=== PATIENT | female | born 1980 | race Caucasian/White ===

== ENCOUNTER 2018-07-14 08:00 | Outpatient (CLI) | payer MEDICAID | END 2018-07-14 08:01 | disposition home or self-care (01) | LOC: LAB.R 08:00 | PROVIDERS: ATTEND Nurse Practitioner Obstetrics & Gynecology | DX: R30.0 Dysuria (principal) | CPT/HCPCS: 87086 ==

== ENCOUNTER 2018-12-13 13:03 | Emergency (ER) | payer MEDICAID ==
[2018-12-13 13:41] LABS: BASOPHILS % (AUTO) 0.3 %; EOSINOPHILS # (AUTO) 0.1 10^3/uL (0.0-0.7); EOSINOPHILS % (AUTO) 1.7 %; HGB - HEMOGLOBIN 14.6 g/dL (12.0-16.0); LYMPHOCYTES # (AUTO) 1.9 10^3/uL (1.5-3.5); LYMPHOCYTES % (AUTO) 29.6 %; MEAN CORPUSCULAR HEMOGLOBIN 28.5 pg (27.0-31.0); MEAN CORPUSCULAR HGB CONC 33.5 g/dL (32.0-36.0); MEAN CORPUSCULAR VOLUME 85.2 fL (81.0-99.0); MEAN PLATELET VOLUME 10.3 fL (7.9-10.8); MONOCYTES # (AUTO) 0.4 10^3/uL (0.0-1.0); MONOCYTES % (AUTO) 5.6 %; NEUTROPHILS # (AUTO) 4.1 10^3/uL (1.5-6.6); NEUTROPHILS % (AUTO) 62.3 %; PLT - PLATELET COUNT 232 10^3/uL (130-450); RED BLOOD COUNT 5.12 10^6/uL (4.20-5.40); RED CELL DISTRIBUTION WIDTH 12.8 % (12.0-15.0); WHITE BLOOD COUNT 6.6 x10^3/uL (4.8-10.8)
[2018-12-13 13:54] LABS: ALBUMIN 4.3 g/dL (3.2-5.5); ALBUMIN/GLOBULIN RATIO 1.2 (1.0-2.2); BILIRUBIN,TOTAL 0.4 mg/dL (0.2-1.0); CALCIUM 9.1 mg/dL (8.5-10.3); CREATININE 0.7 mg/dL (0.4-1.0)
--- NOTE | 2018-12-13 14:32 | XRAY Report ---
Reason: chest pain Procedure Date: 12/13/2018 Accession Number: [id number] / [id number] Procedure: XR - Chest 2 View X-Ray CPT Code: 93185 FULL RESULT: EXAM: CHEST RADIOGRAPHY EXAM DATE: 12/13/2018 02:01 PM. CLINICAL HISTORY: Chest pain. COMPARISON: None. TECHNIQUE: 2 views. FINDINGS: Lungs/Pleura: No focal opacities or vascular congestion. No pleural effusion or pneumothorax. Normal volumes. Mediastinum: Heart and mediastinal contours are unremarkable. Other: Bones unremarkable. IMPRESSION: 1. Unremarkable 2-view chest radiography. [facility]
--- NOTE | 2018-12-13 15:00 | ED Physician Documentation ---
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 Having just mild pain still.) Timing - duration: Minutes Timing - details: Abrupt onset, Still present (lessened) Quality: Aching, Sharp, Pain Location: Substernal, Left chest, Left neck Radiation: Neck Improved by: No: Rest Worsened by: Inspiration, Movement, Palpation. No: Exertion Associated symptoms: No: Shortness of air, Nausea, Vomiting, Feeling faint / dizzy, Palpitations, Cough Similar symptoms before: No diagnosis (similar episode recent past that lasted few hours to a day.) Review of Systems Constitutional: denies: Fever, Chills Nose: denies: Rhinorrhea / runny nose, Congestion Throat: denies: Sore throat Respiratory: denies: Cough GI: denies: Abdominal Pain, Nausea, Vomiting Neurologic: reports: Numbness (has some feeling of numbness down left arm to middle fingers, not whole arm/hand.). denies: Focal weakness Psychiatric: denies: Depressed, Anxiety PD PAST MEDICAL HISTORY - Past Medical History Past Medical History: Yes Cardiovascular: Angina Respiratory: Asthma Neuro: None Endocrine/Autoimmune: None GI: None WATER PLUMBER: Other : Chronic bladder infection HEENT: None Musculoskeletal: Other Derm: None Other Past Medical History: ggnew substernal pain in the last 5 months: 12/13/2018. cervical cancer, restless lef - Present Medications Home Medications: Ambulatory Orders Medication Instructions Recorded Confirmed Naproxen 375 mg PO BID #20 tablet 12/13/18 Tramadol HCl 50 mg PO Q6H PRN #15 tablet 12/13/18 - Allergies Allergies/Adverse Reactions: Allergies Allergy/AdvReac Type Severity Reaction Status Date / Time No Known Drug Allergies Allergy Verified 12/13/18 13:14 - Social History Does the pt smoke?: No Smoking Status: Never smoker PD ED PE NORMAL - Vitals Vital signs reviewed: Yes - General General: Alert and oriented X 3, Well developed/nourished - HEENT HEENT: Pharynx benign - Neck Neck: Supple, no meningeal sign, No adenopathy, Other (left lateral neck at SCM with some tenderness. Not tender posteriorly. ) - Cardiac Cardiac: RRR, No murmur - Respiratory Respiratory: Clear bilaterally, Other (focal chest tenderness left parasternal upper aspect without redness, rash, nor sores. ) - Abdomen Abdomen: Soft, Non tender - Derm Derm: Normal color, Warm and dry, No rash - Extremities Extremities: Other (good color, pulses, cap refill and motor in left arm. Sensation present to touch in area of subjective numbness. ) - Neuro Neuro: Alert and oriented X 3, No motor deficit, No sensory deficit, Normal speech - Psych Psych: Normal mood, Normal affect Results - Vitals Vitals: Vital Signs - 24 hr 12/13/18 12/13/18 12/13/18 13:11 14:55 15:02 Temperature 37.1 C Heart Rate 90 86 Respiratory 18 13 Rate Blood Pressure 114/84 H Blood Pressure 116/76 [Left] Blood Pressure 115/96 H [Right] O2 Saturation 104 H 100 12/13/18 16:46 Temperature Heart Rate 88 Respiratory 19 Rate Blood Pressure 109/77 Blood Pressure [Left] Blood Pressure [Right] O2 Saturation 98 Oxygen O2 Source Room air - EKG (time done) 13:09 Rate: Rate (enter#) (90) Rhythm: NSR [place]: Normal Intervals: Normal VT QRS: Normal Ischemia: Normal ST segments. No: ST elevation c/w ischemia, ST depression - Labs Labs: Laboratory Tests 12/13/18 12/13/18 12/13/18 13:35 13:35 13:35 WBC 6.6 RBC 5.12 Hgb 14.6 Hct 43.6 MCV 85.2 MCH 28.5 MCHC 33.5 RDW 12.8 Plt Count 232 MPV 10.3 Neut # (Auto) 4.1 Lymph # (Auto) 1.9 [place] # (Auto) 0.4 Eos # (Auto) 0.1 Baso # (Auto) 0.0 Absolute Nucleated RBC 0.00 Nucleated RBC % 0.0 Sodium 140 Potassium 3.8 Chloride 105 Carbon Dioxide 24 Anion Gap 11.0 BUN 9 Creatinine 0.7 Estimated GFR (MDRD) 94 Glucose 93 Calcium 9.1 Total Bilirubin 0.4 AST 23 ALT 21 Alkaline Phosphatase 71 Troponin I < 0.04 Total Protein 8.0 Albumin 4.3 Globulin 3.7 Albumin/Globulin Ratio 1.2 Lipase 34 - Rads (name of study) chest xray Radiology: Prelim report reviewed, EMP read contemporaneously (no acute process), See rad report PD MEDICAL DECISION MAKING - ED course Complexity details: considered differential (The patient has localized pain in the sternal area up to the left side of the neck. It is reproducible with palpation on the left side of the upper sternum. There is no rash nor sores. She does have a normal EKG as well as troponin and a normal chest x-ray. She does not have any symptoms to suggest respiratory component such as cough or pain with breathing. At this point would presume musculoskeletal pain related to the lifting she did earlier. No signs of heart or lung problems. She has a very low Wells score of 0, for concern of DVT or PE.), d/w patient Departure - Departure Disposition: 01 Home, Self Care Clinical Impression: Musculoskeletal chest pain Condition: Stable Record reviewed to determine appropriate education?: Yes Instructions: ED Strain Chest Wall Prescriptions: Naproxen 375 mg PO BID #20 tablet Tramadol HCl 50 mg PO Q6H PRN #15 tablet PRN Reason: Pain Comments: Your EKG, chest x-ray, blood tests are normal without any signs of heart or lung causes for your pain. Clinically it sounds musculoskeletal. We will treated with anti-inflammatories and less lifting and push pull for the next several days. Recheck if not improved over the next few days. Return if other symptoms develop along with it. Discharge Date/Time: 12/13/18 16:48
[2018-12-13] MEDS ORDERED: ACETAMINOPHEN 325 MG TABLET PO STA (15:21)
[2018-12-13] MEDS ORDERED: KETOROLAC 15 MG/ML VIAL IVP STA (15:21)
[2018-12-13] MEDS ORDERED: DEXAMETHASONE 10 MG/ML VIAL IVP STA (15:21)
[2018-12-13] MEDS ORDERED: MORPHINE 2 MG/ML CARPUJECT IVP STA (16:19)
[2018-12-13 16:47] VITALS: BP 109/77
== END 2018-12-13 16:48 | disposition home or self-care (01) ==
LOC: ED 13:03
DX: R07.89 Other chest pain (principal)
CPT/HCPCS: 36415; 71046; 80053; 83690; 84484; 85025; 93005; 96374; 99284; A9270

== ENCOUNTER 2018-12-31 | Outpatient (CLI) | payer MEDICAID | END 2018-12-31 10:55 | disposition home or self-care (01) | DX: Z00.00 Encounter for general adult medical examination without abnormal findings (principal) ==

== ENCOUNTER 2019-04-06 08:00 | Outpatient (CLI) | payer SELFPAY ==
[2019-04-06 19:44] LABS: T4 (THYROXINE) 8.29 ug/dL (6.09-12.23)
[2019-04-06 19:47] LABS: THYROID STIMULATING HORMONE 2.13 uIU/mL (0.34-5.60)
== END 2019-04-06 23:59 | disposition home or self-care (01) ==
LOC: LAB.WCP 08:00
PROVIDERS: ATTEND Family Medicine
DX: R00.2 Palpitations (principal)
CPT/HCPCS: 36415; 84436; 84443; 84481

== ENCOUNTER 2020-06-24 08:52 | Outpatient (CLI) | payer OTHER | END 2020-06-24 08:53 | disposition home or self-care (01) | LOC: DI 08:52 | PROVIDERS: ATTEND Physician Assistant | DX: R01.1 Cardiac murmur, unspecified (principal); R00.2 Palpitations | CPT/HCPCS: 93306 ==

== ENCOUNTER 2023-12-23 15:47 | Outpatient (CLI) | payer OTHER | END 2023-12-23 15:48 | disposition home or self-care (01) | LOC: LAB 15:47 | PROVIDERS: ATTEND Physician Assistant | DX: Z11.1 Encounter for screening for respiratory tuberculosis (principal) | CPT/HCPCS: 81599 ==